=== PATIENT | female | born 1990 | race Caucasian/White ===

== ENCOUNTER 2022-06-28 08:33 | Emergency (ER) | payer BC, SELFPAY ==
[2022-06-28 08:40] VITALS: BP 107/68; PULSE 79; RESP 14; TEMP 36.8; O2SAT 98
--- NOTE | 2022-06-28 09:13 | ED.URI ---
HPI - URI/Sore Throat General Chief Complaint: Upper Respiratory Infection Stated Complaint: Sinus Congestion/Nausea Time Seen by Provider: 06/28/22 09:20 History of Present Illness HPI Narrative: patient presents with nasal congestion and draiange no fever slight cough has not taken anything OTC for her symptoms. Related Data Home Medications Medication Instructions Recorded Confirmed bupropion HCl 100 mg tablet 100 mg PO DAILY 06/28/22 06/28/22 Allergies Allergy/AdvReac Type Severity Reaction Status Date / Time hydrocodone Allergy Severe Nausea Verified 06/28/22 09:10 morphine Allergy Severe Anaphylaxis Verified 06/28/22 09:10 Review of Systems Review of Systems: cONSTITUTIONAL: Denies fever, chills, or sweats. EYES: Denies visual changes, redness, or discharge. ENT: Denies rhinorrhea, congestion, sore throat, or otalgia. CARDIOVASCULAR: Denies chest pain, palpitations, or edema. RESPIRATORY: Denies cough or dyspnea. GASTROINTESTINAL: Denies abdominal pain, nausea, vomiting, or diarrhea. GENITOURINARY: Denies dysuria or hematuria. SKIN: Denies rash or itching. MUSCULOSKELETAL: Denies back pain, joint pain, or myalgia. NEUROLOGIC: Denies headache, numbness, or weakness. PSYCHIATRIC: Denies anxiety or depression. CONSTITUTIONAL: Denies fever, chills, or sweats. EYES: Denies visual changes, redness, or discharge. ENT: Denies rhinorrhea, congestion, sore throat, or otalgia. CARDIOVASCULAR: Denies chest pain, palpitations, or edema. RESPIRATORY: Denies cough or dyspnea. GASTROINTESTINAL: Denies abdominal pain, nausea, vomiting, or diarrhea. GENITOURINARY: Denies dysuria or hematuria. SKIN: Denies rash or itching. MUSCULOSKELETAL: Denies back pain, joint pain, or myalgia. NEUROLOGIC: Denies headache, numbness, or weakness. PSYCHIATRIC: Denies anxiety or depression. [facility] Past Medical History Medical History (Updated 06/28/22 @ 09:24 by IVANA Herzog) delivery delivered JHONATAN (generalized anxiety disorder) Recurrent cold sores Tobacco abuse counseling Surgical History Surgical History (Updated 04/23/20 @ 14:06 by Andrés Parra MD) History of appendectomy History of cholecystectomy History of hysterectomy History of knee surgery History of mandibular surgery [place] teeth removed Family History Family History Mother Asthma Family history of malignant neoplasm of cervix Sibling Asthma Family history of lupus erythematosus Grandparent Family history of malignant neoplasm of breast in first degree relative Grandparent Hypertension Family history of malignant neoplasm of breast Mother Carcinoma of colon Family history of diabetes mellitus in first degree relative Family history of malignant neoplasm of cervix Social History Social History Years smoked: 12 Smoking status: Current every day smoker Tobacco type: cigarettes Second hand tobacco smoke exposure: No Alcohol intake: current Alcohol use details: Occasional Substance use: current Substance use type: marijuana Other substance usage details: OCC. Additional occupation/education comments: Homemaker Gender identity (if verbalized by the patient): Female Sexual Orientation (if Verbalized by the Patient): Straight or Heterosexual Spiritual care concerns: No Comments At time of signature, agree with nursing past medical, surgical, social and family history. There is no relevant family history pertinent to the presenting complaint Exam Narrative: mild post nasal draiange no pharyngeal erythema no trismus lungs clear bilteral TM dullness CONSTITUTIONAL: Denies chills, or sweats. Reports fever and generalized body aches EYES: Denies visual changes, redness, or discharge. ENT: Denies otalgia. Reports nasal congestion runny nose and sore throat CARDIOVASCULAR: D
== END 2022-06-28 09:54 | disposition home or self-care (01) ==
PROVIDERS: Emergency Provider Nurse Practitioner Family
DX: B34.9 Viral infection, unspecified (principal); J06.9 Acute upper respiratory infection, unspecified; F17.210 Nicotine dependence, cigarettes, uncomplicated; F12.90 Cannabis use, unspecified, uncomplicated; F41.1 Generalized anxiety disorder
CPT/HCPCS: 87804; 99213; G0463

== ENCOUNTER 2023-02-02 10:04 | Emergency (ER) | payer BC, SELFPAY ==
[2023-02-02 10:08] VITALS: BP 114/78; PULSE 84; RESP 16; TEMP 36.4; O2SAT 99
--- NOTE | 2023-02-02 10:22 | ED.URI ---
HPI - URI/Sore Throat General Chief Complaint: Upper Respiratory Infection Stated Complaint: Sore Throat History of Present Illness HPI Narrative: Patient presents with sore throat and exposure to strep over the weekend. Patient also has nasal congestion and states she is taking Mucinex for her symptoms. No shortness of breath no chest pain no fever. No trouble swallowing no drooling. Related Data Home Medications Medication Instructions Recorded Confirmed bupropion HCl 100 mg tablet 100 mg PO DAILY 06/28/22 06/28/22 Allergies Allergy/AdvReac Type Severity Reaction Status Date / Time hydrocodone Allergy Severe Nausea Verified 06/28/22 09:10 morphine Allergy Severe Anaphylaxis Verified 06/28/22 09:10 Review of Systems Review of Systems: CONSTITUTIONAL: Denies chills, or sweats. Reports fever and generalized body aches EYES: Denies visual changes, redness, or discharge. ENT: Denies otalgia. Reports nasal congestion runny nose and sore throat CARDIOVASCULAR: Denies chest pain, palpitations, or edema. RESPIRATORY: Denies dyspnea. Reports occasional cough GASTROINTESTINAL: Denies abdominal pain, nausea, vomiting, or diarrhea. GENITOURINARY: Denies dysuria or hematuria. SKIN: Denies rash or itching. MUSCULOSKELETAL: Denies back pain, joint pain, or myalgia. Reports generalized body aches NEUROLOGIC: Denies headache, numbness, or weakness. PSYCHIATRIC: Denies anxiety or depression. [facility] Past Medical History Medical History (Updated 02/02/23 @ 10:25 by IVANA Herzog) delivery delivered JHONATAN (generalized anxiety disorder) Recurrent cold sores Tobacco abuse counseling Surgical History Surgical History (Updated 04/23/20 @ 14:06 by Andrés Parra MD) History of appendectomy History of cholecystectomy History of hysterectomy History of knee surgery History of mandibular surgery [place] teeth removed Family History Family History Mother Asthma Family history of malignant neoplasm of cervix Sibling Asthma Family history of lupus erythematosus Grandparent Family history of malignant neoplasm of breast in first degree relative Grandparent Hypertension Family history of malignant neoplasm of breast Mother Carcinoma of colon Family history of diabetes mellitus in first degree relative Family history of malignant neoplasm of cervix Social History Social History (Reviewed 04/23/20 @ 13:52 by TAMIKO Springer Years smoked: 12 Smoking status: Current every day smoker Tobacco type: cigarettes Second hand tobacco smoke exposure: No Alcohol intake: current Alcohol use details: Occasional Substance use: current Substance use type: marijuana Other substance usage details: OCC. Living arrangements: with family Occupation/Education: other Additional occupation/education comments: Homemaker Gender identity (if verbalized by the patient): Female Sexual Orientation (if Verbalized by the Patient): Straight or Heterosexual Spiritual care concerns: No Comments At time of signature, agree with nursing past medical, surgical, social and family history. There is no relevant family history pertinent to the presenting complaint Exam Narrative: The patient is a well-developed, well-nourished in no acute distress. SKIN: Skin is warm and dry without erythema, swelling or exudate. There is good turgor. No tenting. HEAD: Atraumatic. Normocephalic. No temporal or scalp tenderness. EYES: Moist and bright. Sclera and conjunctivae normal. No discharge. PERRLA. Extraocular motions intact. Gross visual acuity intact. EARS: Pinna is normal shape and contour. Clear external auditory canals. TM pearly [place] with good cone of light, no erythema or suppuration. Bilateral cerumen noted no gross hearing deficit. NOSE: pink, moist mucosa with good air movement. Clear rhinorrhea without nasal flaring. Septum
== END 2023-02-02 10:32 | disposition home or self-care (01) ==
PROVIDERS: Emergency Provider Nurse Practitioner Family
DX: J02.9 Acute pharyngitis, unspecified (principal); R09.82 Postnasal drip; F17.210 Nicotine dependence, cigarettes, uncomplicated; F12.90 Cannabis use, unspecified, uncomplicated; F41.1 Generalized anxiety disorder
CPT/HCPCS: 87081; 87880; 99213; G0463

== ENCOUNTER 2023-07-01 19:05 | Emergency (ER) | payer BC, SELFPAY ==
[2023-07-01 19:12] VITALS: BP 122/76; PULSE 86; RESP 18; TEMP 36.5; O2SAT 98
--- NOTE | 2023-07-01 19:31 | ED.SKABFB ---
HPI - Skin/Abscess/Foreign Bdy General Chief complaint: Skin/Abscess/Foreign Body Stated complaint: rash/sore throat Time Seen by Provider: 07/01/23 19:15 Source: patient Mode of arrival: ambulatory Limitations: no limitations History of Present Illness HPI narrative: Michell is a 33-year-old female patient presenting to the clinic today with complaints of a rash on her back that is and painful as well as a sore throat. She reports no known fever or chills. Has had the sore throat for 2-3 days and the rashes started last night. Related Data Allergies Allergy/AdvReac Type Severity Reaction Status Date / Time hydrocodone Allergy Severe Nausea Verified 07/01/23 19:22 morphine Allergy Severe Anaphylaxis Verified 07/01/23 19:22 Review of Systems Review of Systems: Pertinent positives per HPI. Patient denies any fever, chills, rash, headache, visual changes, dizziness, cough, shortness of breath, chest pain, palpitations, nausea, vomiting, diarrhea, constipation, abdominal pain, or any urinary issues. PMFSH Past Medical History Medical History delivery delivered JHONATAN (generalized anxiety disorder) Recurrent cold sores Tobacco abuse counseling Surgical History Surgical History History of appendectomy History of cholecystectomy History of hysterectomy History of knee surgery History of mandibular surgery [place] teeth removed Family History Family History Mother Asthma Family history of malignant neoplasm of cervix Sibling Asthma Family history of lupus erythematosus Grandparent Family history of malignant neoplasm of breast in first degree relative Grandparent Hypertension Family history of malignant neoplasm of breast Mother Carcinoma of colon Family history of diabetes mellitus in first degree relative Family history of malignant neoplasm of cervix Social History Social History Years smoked: 12 Smoking status: Current every day smoker Tobacco type: cigarettes Second hand tobacco smoke exposure: No Alcohol intake: current Alcohol use details: Occasional Substance use: current Substance use type: marijuana Other substance usage details: OCC. Living arrangements: with family Occupation/Education: other Additional occupation/education comments: Homemaker Gender identity (if verbalized by the patient): Female Sexual Orientation (if Verbalized by the Patient): Straight or Heterosexual Spiritual care concerns: No Comments At the time of my signature, I reviewed and agree with the nursing past medical, surgical, social, and family history. There is no relevant family history pertinent to the patient complaint. Exam Narrative: General: Well-developed, well nourished, in no apparent distress Head: Normocephalic, atraumatic Eyes: Pupils equally round and reactive to light bilaterally, EOM intact, sclera and conjunctive clear, no discharge, lids normal Ears: TMs intact and clear, ear canals clear, no drainage, grossly hearing normal. Nose: Nares patent, no discharge, no inflammation, no sinus tenderness. Mouth: Oral pharynx red without lesions or masses, good dentition, MMM. Neck: Supple, trachea midline, no enlargement of anterior or posterior cervical nodes, no thyroid masses or goiter palpable. Cardio: Regular rate and rhythm, s1 and s2 normal, no murmur appreciated. Resp: Clear to auscultation bilaterally, no rhonchi, rales, wheezing or rubs Integumentary: [place], warm, and dry, intact without lesion, small little papule like lesions with clear fluid Course Course Emergency Course: Portions of this record may have been created with voice recognition software. Level of Care: Express Care Visit Vital Signs Vital signs:
== END 2023-07-01 19:40 | disposition home or self-care (01) ==
PROVIDERS: Emergency Provider Nurse Practitioner Family
DX: R21 Rash and other nonspecific skin eruption (principal); J02.9 Acute pharyngitis, unspecified; F17.210 Nicotine dependence, cigarettes, uncomplicated; F12.90 Cannabis use, unspecified, uncomplicated
CPT/HCPCS: 87081; 87880; 99213; G0463

== ENCOUNTER 2024-06-19 11:30 | Emergency (ER) | payer BC, SELFPAY ==
--- NOTE | ~2024-06-19 | XR_ITS ---
Clinical Indication: Cough PA and lateral views of the chest: Comparison: None Findings: The lungs are clear, without evidence of focal consolidation or pleural effusion. Cardiome diastinal silhouette is within normal limits. Bones and soft tissues are unremarkable. Impression: Normal chest. Reviewed, dictated and finalized at location . [facility]LLER Impression: Normal chest.
[2024-06-19 11:43] VITALS: BP 122/73; PULSE 91; RESP 16; TEMP 36.5; O2SAT 100
--- NOTE | 2024-06-19 12:36 | ED_ITS ---
HPI - General Adult General Chief complaint: Upper Respiratory Infection Stated complaint: Shortness of Breath/Fever/Cough Source: patient Mode of arrival: ambulatory Limitations: no limitations History of Present Illness HPI narrative: Patient presents for evaluation of sick symptoms for last 10 days. Her primary symptoms are respiratory with reports of sinus congestion, thick yellow drainage, cough, wheezing, shortness of breath, and chest pressure. She had some fevers and chills but those improved. She also had nausea, vomiting, diarrhea but those have also improved. She is not taking any medications to assist with her symptoms. She went to [facility] on the of this month and was given a medrol dose ifrah and albuterol. Those are not helping. Related Data Home Medications Medication Instructions Recorded Confirmed albuterol sulfate 90 mcg/actuation inhalation 06/19/24 aerosol inhaler methylprednisolone 4 mg tablets in mg 06/19/24 a dose pack Allergies Allergy/AdvReac Type Severity Reaction Status Date / Time hydrocodone Allergy Severe Nausea Verified 07/01/23 19:22 morphine Allergy Severe Anaphylaxis Verified 07/01/23 19:22 Review of Systems Review of Systems: CONSTITUTIONAL: Reports recent fever and chills, none currently. EYES: Denies visual changes, redness, or discharge. ENT: Reports sinus congestion, drainage and left sided otalgia CARDIOVASCULAR: Reports chest pressure. Denies palpitations or edema. RESPIRATORY: Reports cough, shortness of breath, wheezing GASTROINTESTINAL: Reports nausea, vomiting and diarrhea recently, now resolved GENITOURINARY: Denies dysuria or hematuria. SKIN: Denies rash or itching. MUSCULOSKELETAL: Denies back pain, joint pain, or myalgia. NEUROLOGIC: Denies headache, numbness, dizziness, or weakness. PSYCHIATRIC: Denies anxiety or depression. [facility] Past Medical History Medical History delivery delivered JHONATAN (generalized anxiety disorder) Recurrent cold sores Tobacco abuse counseling Surgical History Surgical History History of appendectomy History of cholecystectomy History of hysterectomy History of knee surgery History of mandibular surgery [place] teeth removed Family History Family History Mother Asthma Family history of malignant neoplasm of cervix Sibling Asthma Family history of lupus erythematosus Grandparent Family history of malignant neoplasm of breast in first degree relative Grandparent Hypertension Family history of malignant neoplasm of breast Mother Carcinoma of colon Family history of diabetes mellitus in first degree relative Family history of malignant neoplasm of cervix Social History Social History Years smoked: 12 Smoking status: Current every day smoker Tobacco type: cigarettes Second hand tobacco smoke exposure: No Alcohol intake: current Alcohol use details: Occasional Substance use: current Substance use type: marijuana Other substance usage details: OCC. Living arrangements: with family Occupation/Education: other Additional occupation/education comments: Homemaker Gender identity (if verbalized by the patient): Female Sexual Orientation (if Verbalized by the Patient): Straight or Heterosexual Spiritual care concerns: No Exam Narrative: GENERAL: Well-appearing, well-nourished, and in no acute distress. HEAD: Normocephalic, atraumatic. EYES: PERRLA and EOMI. ENT: Nares clear, no rhinorrhea or epistaxis. Mucous membranes moist. Oropharynx without tonsillar hypertrophy exudate or other lesions. Bilateral TMs pearly harry nonbulging NECK: Supple. No adenopathy or masses. No carotid bruits or JVD CHEST: Diminished breath sounds throughout. Wheezing noted in lung irby posteriorly HEART: Regular rate and rhythm. No murmur heard. Normal peripheral pulses. ABDOMEN: Soft, nontender, nondistended, normal active bowel sounds. EXTREMITIES: Normal range of motion. No edema. SKIN: Warm, dry, no rash. NEURO: No focal deficits. Alert and oriented x3. PSYCH: Normal mood and affect. Course Course Emergency Course: This is a 34-year-old female who presented for evaluation of sick symptoms. C hest x-ray was normal. She was given nebulizer treatment and steroids. Medrol Dosepak has not helped so will try prednisone. At [facility] if she meets criteria for bacterial sinusitis based upon duration of time in which she has been symptomatic and the nature of her discharge. Also give her prescriptions for Mucinex DM and albuterol neb solution(she has a machine at home). Follow-up with primary provider. Go to the ER for worsening symptoms. Patient in agreement with plan of care Level of Care: Express Care Visit Vital Signs Vital signs: Vital Signs Temperature 36.5 C 06/19/24 11:43 Pulse Rate 91 06/19/24 11:43 Respiratory Rate 16 06/19/24 11:43 Blood Pressure 122/73 06/19/24 11:43 Pulse Oximetry 100 06/19/24 11:43 Oxygen Delivery Room Air 06/19/24 11:43 Temperature 36.5 C 06/19/24 11:43 Pulse Rate 88 06/19/24 13:19 Respiratory Rate 16 06/19/24 13:19 Blood Pressure 122/73 06/19/24 11:43 Pulse Oximetry 97 06/19/24 13:19 Oxygen Delivery Room Air 06/19/24 11:43 Medical Decision Making Vital Signs Vital Signs: Vital Signs Temperature 36.5 C 06/19/24 11:43 Pulse Rate 91 06/19/24 11:43 Respiratory Rate 16 06/19/24 11:43 Blood Pressure 122/73 06/19/24 11:43 Pulse Oximetry 100 06/19/24 11:43 Oxygen Delivery Room Air 06/19/24 11:43 Temperature 36.5 C 06/19/24 11:43 Pulse Rate 88 06/19/24 13:19 Respiratory Rate 16 06/19/24 13:19 Blood Pressure 122/73 06/19/24 11:43 Pulse Oximetry 97 06/19/24 13:19 Oxygen Delivery Room Air 06/19/24 11:43 Imaging Data Radiologist's impression: Clinical Indication: Cough PA and lateral views of the chest: Comparison: None Findings: The lungs are clear, without evidence of focal consolidation or pleural effusion. Cardiomediastinal silhouette is within normal limits. Bones and soft tissues are unremarkable. Impression: Normal chest. Discharge Plan Discharge Clinical Impression: Sinusitis Patient Disposition: Home, Self-Care Condition: Stable Instructions: Antibiotic Form, Sinusitis (ED) Patient Language: [place] Prescriptions: New amoxicillin-pot clavulanate 875-125 mg tablet 1 tablet PO Q12H Qty: 20 0RF prednisone 20 mg tablet See Rx Instructions .ROUTE .COMPLEX Qty: 11 0RF Rx Instructions: 2 tabs po daily x 3 days, then 1 tab po daily x 3 days, then 1/2 tab po daily x 4 days albuterol sulfate 2.5 mg /3 mL (0.083 %) solution for nebulization 2.5 mg inhalation Q6H Qty: 75 0RF dextromethorphan-guaifenesin [Mucus DM Max ER] 60-1,200 mg tablet extended release 12 hr 1 tablet PO Q12H Qty: 20 0RF No Action methylprednisolone 4 mg tablets,dose pack albuterol sulfate 90 mcg/actuation HFA aerosol inhaler INHALATION sertraline 100 mg tablet See Rx Instructions .ROUTE .COMPLEX Qty: 60 0RF Dose Instruction: TAKE 2 TABLETS BY MOUTH DAILY Rx Instructions: TAKE 2 TABLETS BY MOUTH DAILY Follow-up/Referrals: John Kunz MD [Physician] - Time of Disposition: 13:23
[2024-06-19] MEDS: IPRATROPIUM 0.5 MG/ALBUTEROL SULFATE 2.5 MG AMPUL.NEB 3 ML INHALATION (12:45)
[2024-06-19] MEDS: methylPREDNISolone SOD SUCC 125 MG VIAL IM (12:45)
[2024-06-19 13:19] VITALS: PULSE 88; RESP 16; O2SAT 97
== END 2024-06-19 13:24 | disposition home or self-care (01) ==
PROVIDERS: Emergency Provider Nurse Practitioner
DX: J32.9 Chronic sinusitis, unspecified (principal); F17.210 Nicotine dependence, cigarettes, uncomplicated
CPT/HCPCS: 71046; 94640; 96372; 99213; G0463; J2919